=== PATIENT | male | born 1985 | race Caucasian/White ===

== ENCOUNTER 2019-02-03 14:46 | Emergency (ER) | payer OTHER ==
[~2019-02-03] VITALS: Ht 177.8 cm; Wt 86.4 kg
[2019-02-03 14:46] VITALS: BP 142/100
[2019-02-03] MEDS ORDERED: IBUP200T45 PO (15:03)
[2019-02-03] MEDS ORDERED: IBUP80TA PO (15:26)
[2019-02-03] MEDS ORDERED: NORC1TAB7 PO (15:26)
[2019-02-03] MEDS ORDERED: AUGM875T28 PO (15:26)
== END 2019-02-03 15:36 | disposition home or self-care (01) ==
LOC: M ED 14:46
DX: K02.9 Dental caries, unspecified (principal)